=== PATIENT | female | born 1930 | race Caucasian/White ===

== ENCOUNTER 2016-04-09 14:20 | Observation (INO) | payer OTHER ==
[2016-04-09 14:39] VITALS: BMI 31.9
--- NOTE | 2016-04-09 14:50 | PDOC ---
History of Present Illness - General History Source: Patient Exam Limitations: No Limitations <Reeves,Elham Gaurang - Last Filed: 04/09/16 15:58> - General History Source: Patient Exam Limitations: No Limitations <Cyndy Nixon - Last Filed: 04/11/16 10:00> - General Chief Complaint: Chest Pain Stated Complaint: CHEST PAIN Time Seen by Provider: 04/09/16 14:23 - History of Present Illness Initial Comments: 04/09/16 15:23 The patient is an 86 year old female with a significant past medical history of AFIB, HTN, hypercholesterolemia, emphysema who presents to the Emergency Department sent by PCP with intermittent chest pain for 5 days and EKG changes. She describes the pain as a tightening feeling. She states that the pain occurs at rest, and mainly in the morning every day for the past 5 days. She rates the pain a 4/10. She states that the pain usually lasts for 10-30 minutes. She reports the pain radiates to her back. She also reports a tingling sensation in her face and diaphoresis for the past couple weeks that occurs at night. Her last stress test and echo was a year ago, which was normal. She denies SOB, abdominal pain, fever, chills, cough, nausea, vomiting, diarrhea, constipation, urinary complaints. (Elham Reeves) Past History <Elham Reeves - Last Filed: 04/09/16 15:58> - Past Medical History Anemia: No Asthma: No Cancer: No Cardiac Disorders: Yes (ATRIAL FIBRILLATION) CVA: No COPD: Yes CHF: No Dementia: No Diabetes: No GI Disorders: Yes (GERD COLONIC POLYPS) Disorders: No HTN: Yes Hypercholesterolemia: Yes Liver Disease: No Seizures: No Thyroid Disease: No - Surgical History Abdominal Surgery: Yes Appendectomy: Yes (CHILDHOOD) Cardiac Surgery: No Cholecystectomy: Yes () Lung Surgery: No Neurologic Surgery: No Orthopedic Surgery: No - Psycho/Social/Smoking Cessation Hx Smoking History: Former smoker Have you smoked in the past 12 months: No Number of Cigarettes Smoked Daily: 0 If you are a former smoker, when did you quit?: 1979 Hx Alcohol Use: No Drug/Substance Use Hx: No Substance Use Type: None Hx Substance Use Treatment: No <Cyndy Nixon - Last Filed: 04/11/16 10:00> - Past Medical History Allergies/Adverse Reactions: Allergies Allergy/AdvReac Type Severity Reaction Status Date / Time No Known Allergies Allergy Verified 04/09/16 14:24 Home Medications: Ambulatory Orders Aspirin Coated [Ecotrin] 81 mg PO DAILY 03/22/11 Atorvastatin Ca [Lipitor -] 20 mg PO DAILY 08/18/14 Cholecalciferol (Vitamin D3) [Vitamin D3] 5,000 unit PO DAILY 08/18/14 Dofetilide [Tikosyn] 250 mcg PO BID 08/18/14 Fiber [Fiber Off] 6 each PO DAILY 08/18/14 Ibuprofen [Motrin -] 400 mg PO DAILY PRN 08/18/14 Isosorbide Mononitrate [Imdur] 60 mg PO DAILY 08/18/14 Losartan Potassium 50 mg PO DAILY 08/18/14 Mometasone Furoate [Asmanex] 0.135 gm IH HS 08/18/14 Montelukast Na [Singulair -] 10 mg PO DAILY 08/18/14 [place]-3 Fatty Acids [Fish Oil] 1,000 mg PO DAILY 08/18/14 Potassium Chloride [Klor-Con M15] 20 meq PO DAILY 08/18/14 Sertraline HCl [Zoloft] 200 mg PO DAILY 08/18/14 Tiotropium [place] [Spiriva -] 1 inh PO DAILY 08/18/14 Vit C/Vit E AC/Lut/Copper/Zinc [Preservision Softgel] 1 each PO BID 08/18/14 Cyanocobalamin [Vitamin B12 -] 1,000 mcg PO DAILY 04/09/16 Diltiazem HCl [Cardizem LA] 240 mg PO DAILY 04/09/16 Isosorbide Mononitrate [Isosorbide Mononitrate ER] 240 mg PO DAILY 04/09/16 Nitroglycerin [Nitromist] 1 spray TL PRN PRN 04/09/16 Pantoprazole Sodium 40 mg PO DAILY 04/09/16 Cardiac Specific PMH - Complaint Specific PMHX Pacemaker: No <Cyndy Nixon - Last Filed: 04/11/16 10:00> Review of Systems - Review of Systems Able to Perform ROS?: Yes <Elham Reeves - Last Filed: 04/09/16 15:58> <Cyndy Nixon - Last Filed: 04/11/16 10:00> - Review of Systems Comments:: 04/09/16 15:23 GENERAL/CONSTITUTIONAL: +diaphoresis No: fever, chills, weakness, loss of appetite. HEAD, EYES, EARS, NOSE AND THROAT: No: change in vision, ear pain, discharge, sore throat, throat swelling. CARDIOVASCULAR: + chest pain. No: lightheadedness, palpitations, syncope RESPIRATORY: No: cough, shortness of breath, wheezing, hemoptysis, stridor. GASTROINTESTINAL: No: nausea, vomiting, abdominal cramping, diarrhea, rectal bleeding, constipation. GENITOURINARY: No: dysuria, hematuria, frequency, urgency, flank pain. MUSCULOSKELETAL: No: back pain, neck pain, joint pain, muscle swelling or pain SKIN AND BREASTS: No: lesions, pallor, rash or easy bruising. NEUROLOGIC: + face tingling No: headache, vertigo, paresthesias, weakness ENDOCRINE: No: unexplained weight gain or loss HEMATOLOGIC/LYMPHATIC: No: anemia, easy bleeding, swelling nodes (Elham Reeves) *Physical Exam <Elham Reeves - Last Filed: 04/09/16 15:58> <Cyndy Nixon - Last Filed: 04/11/16 10:00> - Vital Signs Last Vital Signs Temp Pulse Resp BP Pulse Ox 98.4 F 69 17 164/59 94 L 04/11/16 05:55 04/11/16 08:25 04/11/16 08:25 04/11/16 08:25 04/11/16 08:25 - Physical Exam Comments: 04/09/16 15:23 GENERAL: The patient is in no acute distress. HEAD: Normal with no signs of trauma. EYES: PERRLA, EOMI, sclera anicteric, conjunctiva clear. ENT: Ears normal, nares patent, oropharynx clear without exudates. Moist mucous membranes. NECK: Normal range of motion, supple without lymphadenopathy, JVD, or masses. LUNGS: Breath sounds equal, clear to auscultation bilaterally. No wheezes, and no crackles. HEART: No chest wall tenderness. Regular rate and rhythm, normal S1 and S2 without murmur, rub or gallop. ABDOMEN: Soft, nontender, normoactive bowel sounds. No guarding, no rebound. EXTREMITIES: Normal range of motion, no edema. No clubbing or cyanosis. No erythema, or tenderness. NEUROLOGICAL: Cranial nerves II through XII grossly intact. Normal speech. No focal neurological deficits. MUSCULOSKELETAL: Back non-tender to palpation, no CVA tenderness SKIN: Warm, Dry, normal turgor, no rashes or lesions noted. (Elham Reeves) Heart Score/ECG Review - History History: Slightly suspicious - Electrocardiogram EKG: Normal - Age Age: >/= 65 - Risk Factors Risk Factors Heart Score: Yes Hx Hypercholesterolemia, Yes Hx Hypertension, Yes Hx Obesity Based on the list above the patient has:: >/=3 risk factors or Hx atherosclerotic disease - Troponin Troponin: </= normal limit - Score Heart Score - Total: 4 <Cyndy Nixon - Last Filed: 04/11/16 10:00> ED Treatment Course - LABORATORY CBC & Chemistry Diagram: 04/09/16 15:00 04/09/16 15:00 <Elham Reeves - Last Filed: 04/09/16 15:58> - LABORATORY CBC & Chemistry Diagram: 04/09/16 15:00 04/10/16 12:30 <Cyndy Nixon - Last Filed: 04/11/16 10:00> - ADDITIONAL ORDERS Additional order review: 04/09/16 15:00 RBC 4.26 MCV 95.4 MCHC 32.7 RDW 14.9 MPV 8.4 Neutrophils % 61.3 Lymphocytes % 21.3 Monocytes % 12.6 H Eosinophils % 3.8 Basophils % 1.0 - RADIOLOGY Radiology Studies Ordered: Category Date Time Status CHEST PA & LAT [RAD] Stat Radiology 04/09/16 14:50 Completed Radiograph Interpretation: 04/09/16 15:59 Chest X-Ray Reported by Dr. Ronny Haney Impression: Degenerative spine and shoulder changes. Clear lungs. Large heart. No acute pathology. (Elham Reeves) - Medications Given in the ED: ED Medications Discontinued Medications Generic Name Dose Route Start Last Admin Trade Name Freq PRN Reason Stop Dose Admin Isosorbide Mononitrate 60 mg 04/10/16 10:00 04/10/16 09:55 Imdur - PO 60 mg DAILY ELIER Administration Morphine Sulfate 2 mg 04/09/16 16:48 04/09/16 17:44 Morphine Injection - IVPUSH 04/09/16 16:49 2 mg ONCE ONE Administration Nitroglycerin 0.4 mg 04/09/16 16:48 04/09/16 16:50 Nitrostat - SL 04/09/16 16:49 0.4 mg ONCE ONE Administration Medical Decision Making <Elham Reeves - Last Filed: 04/09/16 15:58> <Cyndy Nixon - Last Filed: 04/11/16 10:00> - Medical Decision Making 04/09/16 14:58 A portion of this note was documented by scribe services under my direction. I have reviewed the details of the note, within reason, and agree with the documentation with the following case summary and management plan written by me. Nursing documentation reviewed and incorporated into medical decision making 04/09/16 14:29 This is an 86 yo F with a history of HTN, Afib (on Tikosyn) who presents to the ER today from Dr Wharton Chest pain and EKG changes occurs at rest, 4/10 Intermittent Radiates to the back No diaphoresis, no nausea Lasting 10-30 minutes This morning it was severe Does take asa Will do labs, CXR, EKG Will re assess Anticipate OBS 04/09/16 14:57 04/09/16 15:40 Laboratory Tests 04/09/16 04/09/16 15:00 15:00 WBC 4.8 Hgb 13.3 Hct 40.6 Plt Count 144 INR 1.12 04/09/16 15:45 CXR nml, degenerative changes 04/09/16 15:47 Laboratory Tests 04/09/16 15:00 Creatine Kinase 66 Troponin I < 0.03 L 04/09/16 16:22 Laboratory Tests 04/09/16 15:00 Sodium 142 Potassium 3.9 Chloride 105 Carbon Dioxide 27 Anion Gap 10 BUN 21 H Creatinine 1.0 Random Glucose 107 H Case reviewed with hospitalist 04/09/16 16:49 Pt complains of chest pain Will give Nitro and morphine Pt has taken her ASA today Pt repositioned and this actually improved her symptoms (Cyndy Nixon) *DC/Admit/Observation/Transfer <Elham Reeves - Last Filed: 04/09/16 15:58> - Discharge Dispostion Admit: Yes <Hussain,Cyndy - Last Filed: 04/11/16 10:00> Diagnosis at time of Disposition: Bradycardia Chest pain Qualifiers: Chest pain type: other chest pain Qualified Code(s): R07.89 - Other chest pain - Discharge Dispostion Condition at time of disposition: Stable - Referrals - Attestations Scribe Attestion: 04/09/16 15:24 Documentation prepared by Elham Reeves, acting as medical coding technician for Cyndy Nixon MD. (Elham Reeves)
[2016-04-09 15:34] LABS: EOSINOPHIL 3.8 % (0-4.5); MCH 31.1 pg (25.7-33.7); MCHC 32.7 g/dl (32.0-36.0); MEAN CELL VOLUME 95.4 fl (80-96); MEAN PLT VOLUME 8.4 fl (7.5-11.1); NEUTROPHILS 61.3 % (42.8-82.8); PLATELET COUNT 144 K/MM3 (134-434); RDW 14.9 % (11.6-15.6); WHITE BLOOD COUNT 4.8 K/mm3 (4.0-10.0)
[2016-04-09 15:35] LABS: INR 1.12 (0.82-1.09); PROTHROMBIN TIME (PATIENT) 12.2 SEC (10.2-13.0)
[2016-04-09 15:36] LABS: ALBUMIN 3.9 g/dl (3.5-5.0); BILIRUBIN,TOTAL 0.7 mg/dl (0.2-1.0); CALCIUM 8.7 mg/dl (8.4-10.2); CPK(DFH) 66 IU/L (26-140); MAGNESIUM 1.8 mg/dL (1.8-2.4); TOT PROT 6.5 g/dl (6.4-8.3)
[2016-04-09 15:46] LABS: TROPONIN I (DFP) < 0.03 ng/ml (0.03-0.50)
[2016-04-09] MEDS ORDERED: NITROGLYCERIN SUBLINGUAL 1/150 0.4 MG TAB SL ONE (16:48)
[2016-04-09] MEDS ORDERED: morphine CARPU-JECT 2 MG/1 ML DISP.SYRIN IVPUSH ONE (16:48)
[2016-04-09] MEDS ORDERED: NITROGLYCERIN SUBLINGUAL 1/150 0.4 MG TAB ONE (16:49)
[2016-04-09] MEDS ORDERED: ACETAMINOPHEN 325 MG TABLET (FP) PO PRN (17:33)
[2016-04-09] MEDS ORDERED: ONDANSETRON 4 MG/2 ML VIAL IVPB PRN (17:33)
[2016-04-09] MEDS ORDERED: morphine CARPU-JECT 10 MG/1 ML DISP.SYRIN ONE (17:41)
[2016-04-09 18:26] LABS: PH,URINE 5.5 (4.5-8); URINE APPEARANCE Clear; URINE BILIRUBIN Negative (NEGATIVE); URINE BLOOD Negative (NEGATIVE); URINE GLUCOSE (UA) Negative (NEGATIVE); URINE KETONE Negative (NEGATIVE); URINE NITRITE Negative (NEGATIVE); URINE PROTEIN Negative (NEGATIVE); URINE UROBILINOGEN 0.2 E.U/dl (0.2-1.0)
[2016-04-09 18:29] LABS: URINE COLOR YELLOW; URINE LEUK ESTERASE 1+ (NEGATIVE)
--- NOTE | 2016-04-09 19:46 | HP ---
CHIEF COMPLAINT: Chest Pain, EKG Changes PCP: Dr. León Cardiology: Dr. Camacho HISTORY OF PRESENT ILLNESS: This is a 86 year old woman with a past medical history of Hypertension, Hyperlipidemia, Afib (on Tikosyn), COPD. Who presents to the emergency department from her PCPs office with chest pain x 5 days and EKG changes. Patient reports the pain as pressure to her mid-sternum with intermittent radiation to L- breast, then her lower back. Patient reports periods of SOB increase on exertion, diaphoresis. Patient reports the pain increases before eating, then subsides. Patient has a familial hx- Cardiac. Patient reports heat , tingling to her neck and face. Patient denies slurred speech, focal weakness, numbness. Patient denies fever, chills, cough, dizziness, AP, vomiting, diarrhea , dysuria. ER course was notable for: (1) Cardiac Enzyme neg x1 (2) EKG- NSR with no ST or TWI (3) Chest Xray- no acute pathology Recent Travel: None PAST MEDICAL HISTORY: See HPI PAST SURGICAL HISTORY: Arthrocopy- shoulder Social History: Smoking: Former, 1PPD x 40 years Alcohol: None Drugs: None Family History: Mother: OK Brother: Cardiac Sister: Stroke Allergies No Known Allergies Allergy (Verified 04/09/16 14:24) HOME MEDICATIONS: Medication Instructions Recorded Aspirin Coated [Ecotrin] 81 mg PO DAILY 03/22/11 Atorvastatin Ca [Lipitor -] 20 mg PO DAILY 08/18/14 Cholecalciferol (Vitamin D3) 5,000 unit PO DAILY 08/18/14 [Vitamin D3] Dofetilide [Tikosyn] 250 mcg PO BID 08/18/14 Fiber [Fiber Off] 6 each PO DAILY 08/18/14 Ibuprofen [Motrin -] 400 mg PO DAILY PRN 08/18/14 Isosorbide Mononitrate [Imdur] 60 mg PO DAILY 08/18/14 Losartan Potassium 50 mg PO DAILY 08/18/14 Mometasone Furoate [Asmanex] 0.135 gm IH HS 08/18/14 Montelukast Na [Singulair -] 10 mg PO DAILY 08/18/14 [place]-3 Fatty Acids [Fish Oil] 1,000 mg PO DAILY 08/18/14 Potassium Chloride [Klor-Con M15] 20 meq PO DAILY 08/18/14 Sertraline HCl [Zoloft] 200 mg PO DAILY 08/18/14 Tiotropium [place] [Spiriva -] 1 inh PO DAILY 08/18/14 Vit C/Vit E AC/Lut/Copper/Zinc 1 each PO BID 08/18/14 [Preservision Softgel] Cyanocobalamin [Vitamin B12 -] 1,000 mcg PO DAILY 04/09/16 Diltiazem HCl [Cardizem LA] 240 mg PO DAILY 04/09/16 Isosorbide Mononitrate [Isosorbide 240 mg PO DAILY 04/09/16 Mononitrate ER] Nitroglycerin [Nitromist] 1 spray TL PRN PRN 04/09/16 Pantoprazole Sodium 40 mg PO DAILY 04/09/16 REVIEW OF SYSTEMS CONSTITUTIONAL: Absent: fever, chills, diaphoresis, generalized weakness, malaise, loss of appetite, weight change HEENT: Chronic bilateral hearing loss Absent: rhinorrhea, nasal congestion, throat pain, throat swelling, difficulty swallowing, mouth swelling, ear pain, eye pain, visual changes CARDIOVASCULAR: chest pain Absent: syncope, palpitations, irregular heart rate, lightheadedness, peripheral edema RESPIRATORY: Absent: cough, shortness of breath, dyspnea with exertion, orthopnea, wheezing, stridor, hemoptysis GASTROINTESTINAL:occasional epigastric tenderness Absent: abdominal distension, nausea, vomiting, diarrhea, constipation, melena, hematochezia GENITOURINARY: Absent: dysuria, frequency, urgency, hesitancy, hematuria, flank pain, genital pain MUSCULOSKELETAL: Absent: myalgia, arthralgia, joint swelling, back pain, neck pain SKIN: Absent: rash, itching, pallor HEMATOLOGIC/IMMUNOLOGIC: Absent: easy bleeding, easy bruising, lymphadenopathy, frequent infections ENDOCRINE: Absent: unexplained weight gain, unexplained weight loss, heat intolerance, cold intolerance NEUROLOGIC: paresthesias, dizziness Absent: headache, focal weakness, unsteady gait, seizure, mental status changes , bladder or bowel incontinence PSYCHIATRIC: Absent: anxiety, depression, suicidal or homicidal ideation, hallucinations. PHYSICAL EXAMINATION GENERAL: Awake, alert, and fully oriented, in no acute distress. HEAD: Normal with no signs of trauma. EYES: Pupils equal, round and reactive to light, extraocular movements intact, sclera anicteric, conjunctiva clear. No lid lag. EARS, NOSE, THROAT: Ears-bilateral hearing loss, nares patent, oropharynx clear without exudates. Moist mucous membranes. NECK: Normal range of motion, supple without lymphadenopathy, JVD, or masses. LUNGS: Breath sounds equal, clear to auscultation bilaterally. No wheezes, and no crackles. No accessory muscle use. HEART: Irregular rate and rhythm, normal S1 and S2 without murmur, rub or gallop. ABDOMEN: Soft, obese, nontender, not distended, normoactive bowel sounds, no guarding, no rebound, no masses. No hepatomegaly or splenomegaly. MUSCULOSKELETAL: Normal range of motion at all joints. No bony deformities or tenderness. No CVA tenderness. UPPER EXTREMITIES: 2+ pulses, warm, well-perfused. No cyanosis. No clubbing. Cap refill <2 seconds. No peripheral edema. LOWER EXTREMITIES: 2+ pulses, warm, well-perfused. No calf tenderness. No peripheral edema. NEUROLOGICAL: Cranial nerves II-XII intact. Normal speech. Gait not observed. PSYCHIATRIC: Cooperative. Good eye contact. Appropriate mood and affect. SKIN: Warm, dry, normal turgor, no rashes or lesions noted. Laboratory Results - last 24 hr 04/09/16 18:00 Urine Color Yellow Urine Appearance Clear Urine pH 5.5 Ur Specific [place] 1.010 Urine Protein Negative Urine Glucose (UA) Negative Urine Ketones Negative Urine Blood Negative Urine Nitrite Negative Urine Bilirubin Negative Urine Urobilinogen 0.2 e.u/dl Ur Leukocyte Esterase 1+ H ASSESSMENT/PLAN: This is a 86 year old woman with a PMHx of: HTN, HLD, AFIB(on Tikosyn) COPD. Presents to the ED with Chest Pain and EKG changes from her PCPs office. Placed on Tele Obs Chest Pain r/o ACS for further evaluation of their emergent condition. Plan: 1. Chest Pain r/o ACS - Tele Observation - HEART Score 4 - Appreciate Cardiology Consult - Per Ed record, patient had EKG changes from the PCP, HR currently 60, EKG- no ST or TWI - Asa, BB given in ED - Continue Asa, BB 2. Atrial Fibrillation - Controlled - EKG- NSR - Continue Tikosyn 3. COPD/Asthma - Controlled - Continue home meds - Peakflow BID 4. HTN/HLD - Monitor BP - Continue home meds - Monitor renal function 5. DVT Prophylaxis - OOB - SCDs - Heparin SQ Code Status: Full Code Problem List - Problem (1) Chest pain Code(s): R07.9 - CHEST PAIN, UNSPECIFIED Qualifiers: Chest pain type: other chest pain Qualified Code(s): R07.89 - Other chest pain; R07.8 - Other chest pain (2) Afib Code(s): I48.91 - UNSPECIFIED ATRIAL FIBRILLATION (3) HTN (hypertension) Code(s): I10 - ESSENTIAL (PRIMARY) HYPERTENSION (4) HLD (hyperlipidemia) Code(s): E78.5 - HYPERLIPIDEMIA, UNSPECIFIED (5) COPD (chronic obstructive pulmonary disease) Code(s): J44.9 - CHRONIC OBSTRUCTIVE PULMONARY DISEASE, UNSPECIFIED (6) DVT prophylaxis Code(s): UHV8909 - Visit type - Emergency Visit Emergency Visit: Yes ED Registration Date: 04/09/16 Care time: The patient presented to the Emergency Department on the above date and was hospitalized for further evaluation of their emergent condition. - New Patient This patient is new to me today: Yes Date on this admission: 04/09/16 - Critical Care Critical Care patient: No
[2016-04-09 19:59] LABS: URINE BACTERIA FEW /hpf (NEGATIVE); URINE RBC 0-2 /hpf (0-3)
[2016-04-09] MEDS ORDERED: ZINC PO SCH (22:00)
[2016-04-09] MEDS ORDERED: [UNRECOGNIZED DRUG - OTHER] PO SCH (22:00)
[2016-04-09] MEDS ORDERED: VIT C PO SCH (22:00)
[2016-04-09] MEDS ORDERED: COPPER PO SCH (22:00)
[2016-04-09] MEDS ORDERED: LUT PO SCH (22:00)
[2016-04-09] MEDS ORDERED: VIT E AC PO SCH (22:00)
[2016-04-09] MEDS: ATORVASTATIN CA 20 MG TABLET (FP) PO SCH (22:36)
[2016-04-09] MEDS: MOMETASONE FUROATE 110 MCG/IH INHALER IH SCH (22:37)
[2016-04-09] MEDS: ACLIDINIUM BROMIDE 400 MCG/INH AERO.POWD IH SCH (22:37)
[2016-04-09] MEDS: DOFETILIDE 0.25 MG CAPSULE PO SCH (23:28)
[2016-04-10] MEDS: POTASSIUM CHLORIDE TABS 20 MEQ TABLET.ER (FP) PO SCH (09:55)
[2016-04-10] MEDS: LOSARTAN POTASSIUM 50 MG TABLET (FP) PO SCH (09:55)
[2016-04-10] MEDS: ASPIRIN COATED 81 MG TABLET.EC PO SCH (09:55)
[2016-04-10] MEDS: CYANOCOBALAMIN 1,000 MCG TABLET (FP) PO SCH (09:56)
[2016-04-10] MEDS: CHOLECALCIFEROL (VITAMIN D3) 1,000 UNIT TABLET (FP) PO SCH (09:56)
[2016-04-10] MEDS ORDERED: OMEGA PO SCH (10:00)
[2016-04-10] MEDS ORDERED: DILTIAZEM HCL 240 MG PO SCH (10:00)
[2016-04-10] MEDS ORDERED: POTASSIUM CHLORIDE 20 MEQ PO SCH (10:00)
[2016-04-10] MEDS ORDERED: [UNRECOGNIZED DRUG - REMARK] PO SCH (10:00)
[2016-04-10] MEDS ORDERED: TIOTROPIUM BROMIDE 18 MCG/INH (DEVICE W/ 30 CAPSULES) IH SCH (10:00)
[2016-04-10] MEDS ORDERED: ISOSORBIDE MONONITRATE 60 MG TAB.SR.24H (FP) PO SCH (10:00)
[2016-04-10] MEDS ORDERED: PATIENT'S OWN MEDICATION (NON-FORMULARY) (Sertraline Hcl [Zoloft] 200 MG) PO SCH (10:00)
[2016-04-10] MEDS ORDERED: FATTY ACIDS PO SCH (10:00)
--- NOTE | 2016-04-10 10:17 | EKG ---
Test Reason : Blood Pressure : / mmHG Vent. Rate : 060 BPM Atrial Rate : 060 BPM P-R Int : 156 ms QRS Dur : 102 ms QT Int : 466 ms P-R-T Axes : 066 019 056 degrees QTc Int : 466 ms NORMAL SINUS RHYTHM NORMAL ECG NO PREVIOUS ECGS AVAILABLE Confirmed by EVELIN VORA MD ([id number]) on 04/10/2016 10:17:04 AM Referred By: JOSÉ MIGUEL ZAVALA Confirmed By:EVELIN VORA MD
[2016-04-10] MEDS: SERTRALINE HCL 50 MG TABLET (FP) PO SCH (10:22)
[2016-04-10] MEDS: PANTOPRAZOLE 40 MG TABLET (FP) PO SCH (10:27)
[2016-04-10] MEDS: ACLIDINIUM BROMIDE 400 MCG/INH AERO.POWD IH SCH ×2 (10:28→21:38)
[2016-04-10] MEDS: OMEGA-3 ACID ETHYL ESTERS (FATTY-ACIDS) 1 GM CAPSULE (FP) PO SCH (10:28)
[2016-04-10] MEDS: MONTELUKAST NA 10 MG TABLET PO SCH (10:28)
--- NOTE | 2016-04-10 12:03 | PN ---
[id number] OBJECTIVE: patient is a 86 year old woman with a past medical history of Hypertension, Hyperlipidemia, Afib (on Tikosyn), ablation 2003, ZAYDA (bipap at night), COPD. Patient was admitted from the emergency department to observation for r/o acs. Vital Signs Period Temp Pulse Resp BP Sys/Stewart Pulse Ox Last 24 Hr 97.9 F-98.1 F 55-63 16-20 117-134/52-71 94-98 GENERAL: The patient is awake, alert, and fully oriented, in no acute distress. HEAD: Normal with no signs of trauma. EYES: PERRL, extraocular movements intact, sclera anicteric, conjunctiva clear. No ptosis. ENT: Ears normal, nares patent, oropharynx clear without exudates, moist mucous membranes. NECK: Trachea midline, full range of motion, supple. LUNGS: Breath sounds equal, clear to auscultation bilaterally, no wheezes, no crackles, no accessory muscle use. HEART: Regular rate and rhythm, S1, S2, 2/6 systolic murmur, rub or gallop. ABDOMEN: Soft, nontender, nondistended, normoactive bowel sounds, no guarding, no rebound, no hepatosplenomegaly, no masses. EXTREMITIES: 2+ pulses, warm, well-perfused, no edema. NEUROLOGICAL: Cranial nerves II through XII grossly intact. Normal speech, gait not observed. PSYCH: Normal mood, normal affect. SKIN: Warm, dry, normal turgor, no rashes or lesions noted Laboratory Results - last 24 hr 04/09/16 04/09/16 04/10/16 18:00 20:50 03:10 Troponin I 0.00 < 0.02 Urine Color Yellow Urine Appearance Clear Urine pH 5.5 Ur Specific [place] 1.010 Urine Protein Negative Urine Glucose (UA) Negative Urine Ketones Negative Urine Blood Negative Urine Nitrite Negative Urine Bilirubin Negative Urine Urobilinogen 0.2 e.u/dl Ur Leukocyte Esterase 1+ H Urine RBC 0-2 Urine WBC 2-4 Ur Epithelial Cells Few Urine Bacteria Few Active Medications Generic Name Dose Route Start Last Admin Trade Name Freq PRN Reason Stop Dose Admin Acetaminophen 650 mg 04/09/16 17:33 Tylenol - PO Q4H PRN FEVER OR PAIN Aclidinium [place] 1 puff 04/09/16 22:00 04/10/16 10:28 Tudorza - IH 1 puff BID ELIER Administration Aspirin 81 mg 04/10/16 10:00 04/10/16 09:55 Ecotrin - PO 81 mg DAILY ELIER Administration Atorvastatin Calcium 20 mg 04/09/16 22:00 04/09/16 22:36 Lipitor - PO 20 mg HS ELIER Administration Cholecalciferol 5,000 unit 04/10/16 10:00 04/10/16 09:56 Vitamin D3 - PO 5,000 unit DAILY ELIER Administration Cyanocobalamin 1,000 mcg 04/10/16 10:00 04/10/16 09:56 Vitamin B12 - PO 1,000 mcg DAILY ELIER Administration Diltiazem HCl 240 mg 04/10/16 10:00 04/10/16 09:58 Cardizem Cd - PO 240 mg DAILY ELIER Administration Dofetilide 0.25 mg 04/09/16 22:00 04/09/16 23:28 Tikosyn (Restricted To Cardiology) - PO 0.25 mg BID ELIER Administration Isosorbide Mononitrate 60 mg 04/10/16 10:00 04/10/16 09:55 Imdur - PO 60 mg DAILY ELIER Administration Losartan Potassium 50 mg 04/10/16 10:00 04/10/16 09:55 Cozaar - PO 50 mg DAILY ELIER Administration Mometasone Furoate 110 puff 04/09/16 22:00 04/09/16 22:37 Asmanex 110mcg - IH 110 puff HS ELIER Administration Montelukast Sodium 10 mg 04/10/16 10:00 04/10/16 10:28 Singulair - PO 10 mg DAILY ELIER Administration Non-Formulary Medication 1 each 04/09/16 22:00 Vit C/Vit E Ac/Lut/Copper/Zinc [Preservision Lutein Softgel] PO BID ELIER [id number] Ethyl Esters 1 gm 04/10/16 10:00 04/10/16 10:28 Lovaza - PO 1 gm DAILY ELIER Administration Ondansetron HCl 4 mg 04/09/16 17:33 Zofran Injection IVPB Q6H PRN NAUSEA Pantoprazole Sodium 40 mg 04/10/16 10:00 04/10/16 10:27 Protonix - PO 40 mg DAILY ELIER Administration Potassium Chloride 20 meq 04/10/16 10:00 04/10/16 09:55 K-Dur - PO 20 meq DAILY ELIER Administration Sertraline HCl 200 mg 04/10/16 10:00 Zoloft - PO DAILY ELIER ASSESSMENT/PLAN: 1. 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 - case discussed with Dr Quiñonez at bedside, if no severe aortic stenosis is noted on echo, increase indur to 80mg afib - pmh of paroxysmal afib, s/p ablation, remains NSR on monitor, continous 24 hour cardiac monitoring - continue cardizem, tikosyn and ASA hypertension - continue loosartan - b/p at goal 2. pulm - pmh of copd, continue turdorza and asmanex - albuterol nebulizer prn pmh of zayda - bipap ordered for night 3) gi -pmh of gerd, continue protonix f/e/n low sodium diet ppx - OOB - SCDs - Heparin SQ Code Status: Full Code Visit type - Emergency Visit Emergency Visit: Yes ED Registration Date: 04/09/16 Care time: The patient presented to the Emergency Department on the above date and was hospitalized for further evaluation of their emergent condition. - New Patient This patient is new to me today: Yes Date on this admission: 04/10/16 - Critical Care Critical Care patient: No - Discharge Referral Referred to [facility] Med [facility] No
[2016-04-10] MEDS ORDERED: ALBUTEROL SO4 0.083% IH SOL 2.5 MG/3 ML VIAL.NEB. NEB PRN (12:41)
[2016-04-10 13:07] LABS: CREATININE 0.9 mg/dl (0.6-1.3)
[2016-04-10] MEDS: DOFETILIDE 0.25 MG CAPSULE PO SCH ×2 (13:22→21:38)
[2016-04-10] MEDS ORDERED: PT OWN MED DRAWER 7, Y5N ONE ×2 (15:17→21:12)
--- NOTE | 2016-04-10 16:35 | CONS ---
CARDIOLOGY CONSULTATION DATE OF CONSULTATION: DATE OF DICTATION: 04/10/2016 CHIEF COMPLAINT: Chest pain. HISTORY OF PRESENT ILLNESS: The patient is an 86-year-old female with a long-standing history of hypertension, coronary artery disease, hypercholesterolemia, chronic obstructive pulmonary disease, paroxysmal atrial fibrillation, obstructive sleep apnea, carotid artery disease, macular degeneration. Patient was admitted with 5 days history of recurring retrosternal pressure-like chest discomfort. Initial episode woke her up from sleep and lasted approximately 15-20 minutes and abated spontaneously. There was no history of dyspnea, diaphoresis, weakness, nausea or vomiting. She did notice that the pain radiated to the interscapular area. Patient continued to have recurrence of chest discomfort, which would usually occur on waking up in the morning, and they would last anywhere between 10 to 15 minutes. The last episode occurred at around 9:00 p.m. and was prolonged, and decided to come to the hospital. Patient denies having exertional chest, arm, back, jaw pain or discomfort. She does have dyspnea on exertion, walking approximately 1 block on a flat surface, 1/4 of a block on an incline and a flight of stairs. No history of recent palpitations. No history of cough or expectoration. She denies having diabetes mellitus. PAST MEDICAL HISTORY: 1. As mentioned in the history of present illness. 2. History of nephrolithiasis 3. History of vitamin B12 deficiency SURGICAL HISTORY: 1. Status post tonsillectomy 2. Status post appendectomy 3. Status post cholecystectomy 4. Status post bilateral cataract extraction. SOCIAL HISTORY: Patient is a . Has 2 sons and a daughter. Patient smoked since the age of 21 and smoked for 30 years, 1-1/2 packs per cigarettes per day. On a rare occasion has a drink. Has a cup of tea and coffee. FAMILY HISTORY: Cystic fibrosis genes. Father when he was 78-years of age of pancreatic cancer. Mother at the age of 90, was hypertensive. Had 1 sister who of cerebrovascular accident at the age of 75, was found to be hypertensive. ALLERGIES: None reported. CURRENT MEDICATIONS: Current medications are as follows: 1. Losartan 50 mg p.o. daily 2. Tikosyn 0.25 mg p.o. b.i.d. 3. Diltiazem 240 mg p.o. daily 4. Atorvastatin 20 mg p.o. daily 5. Isosorbide mononitrate 60 mg p.o. daily 6. Ecotrin 81 mg p.o. daily 7. Asmanex 2 inhalations h.s. 8. Zoloft 200 mg p.o. daily 9. Lovaza 1 gm p.o. daily 10. Tudorza, 1 inhalation b.i.d. 11. Singulair 10 mg p.o. daily 12. Pantoprazole 40 mg p.o. daily 13. Potassium supplement 20 mEq p.o. daily 14. Vitamin B12, 1000 mcg p.o. daily 15. Vitamin D, 5000 IU p.o. daily 16. Intraocular injections for macular degeneration REVIEW OF SYSTEMS: Constitutional: No history of chills, fever or night sweats. No history of unintentional weight loss. HEENT: No history of headaches or diplopia. History of blurred vision. No history of epistaxis, hoarseness or tinnitus. History of severe bilateral deafness requiring hearing aids. Cardiovascular system: See history of present illness. Respiratory system: Denies any cough or expectoration. No history of hemoptysis or tuberculosis. Gastrointestinal system: No history of nausea, vomiting, melena or hematemesis. History of gastroesophageal reflux. No history of abdominal pain or discomfort and no history of change in bowel habits. Neurological system: History of occasional exertional lightheadedness and unsteady gait. No history of focal weakness. No history of presyncope or syncope. No history of seizures. Musculoskeletal system: Denies having any arthralgias or myalgias. Endocrine: No history of polyuria or polydipsia. No history of intolerance to cold or warm weather. Genitourinary system: History of renal lithiasis, none in the recent past. No history of dysuria, frequency, hematuria or urgency. Hematological/lymphatic: No history of anemia. No history of lymph node enlargement. EXAMINATION: General: 86-year-old, alert female was in no acute distress. No pallor, cyanosis, clubbing or jaundice. Vital signs: Blood pressure was 134/52 mmHg. Pulse 62 and regular. Respirations were 20 per minute. Temperature was 97.9 degrees Fahrenheit. Weight was not recorded. HEENT: Neck supple. No jugular venous distention. Carotids were 2+. Upstrokes appeared normal. There were bilateral bruits versus radiation of murmur. No thyromegaly was appreciated. Heart: BMI was in the fifth intercostal space. No heaves or thrills. S1 was normal. S2, A2 were slightly reduced but appeared preserved. Ejection systolic murmur, grade 2/6 was heard at the second right intercostal space along the left sternal border, ending in mid-systole. No diastolic murmur was heard. There was a grade 2/6 apical systolic murmur that radiated toward the left axilla. Lungs: Clear on auscultation. Chest: Normal AP diameter. Expansion was symmetrical. Abdomen: Obese, soft and nontender. No hepatosplenomegaly was appreciated. No palpable masses were felt. Bowel sounds were hear. There was a midline abdominal bruit. Extremities: No calf tenderness or dependent edema. Femoral pulses were 1-2+. Dorsalis pedis pulses were weak. Posterior tibial pulses could not be palpated. LAB DATA: ECG of April 09: Sinus rhythm, slow R-wave progression V1 to V3, nonspecific ST abnormalities involving the lateral precordial leads. WBC count 4800. Hemoglobin 13.3 gm/dL. Platelet count 144,000. Slightly elevated monocytes. Sodium 142, potassium 3.9, chloride 105, CO2 27 millimoles per liter. Random glucose was 107 mg/dL. Magnesium was 1.8 mg/dL. Calcium was 8.7 mg/dL. Liver function tests were normal except alkaline phosphatase was 96 units/liter. CK was 66. Troponin was less than 0.03. RADIOGRAPHIC FINDINGS: X-ray chest was reported to have degenerative spine and shoulder changes. Clear lungs, large heart. No acute pathology. IMPRESSION: 1. Chest pain syndrome. Clinical presentation is highly suggestive of coronary artery disease, recurring angina pectoris. 2. Systolic murmur, consistent with aortic valvular disease, aortic stenosis. Severity to be determined. 3. History of paroxysmal atrial fibrillation, currently in sinus rhythm. 4. Hypercholesterolemia. 5. Macular degeneration. 6. Chronic obstructive pulmonary disease. 7. Obstructive sleep apnea syndrome. 8. Hypertension. 9. Exogenous obesity. 10. Apical systolic murmur is compatible with mitral regurgitation. RECOMMENDATIONS: 1. Echocardiogram is in progress. If aortic stenosis is [id number], would suggest titration of Imdur initially to 90 mg p.o. daily, and if hemodynamically stable increase the dose to 120 mg daily. 2. Follow-up ECG and enzymes and STAT ECG during episode of chest discomfort. 3. T3, T4, TSH. 4. Cautious increase in ambulation. 5. If patient has recurrence of chest discomfort with maximum doses of anti-anginal therapy, she will need further investigation that may include the possibility of cardiac catheterization. 6. Nitrostat 0.4 mg sublingually p.r.n. during episode of chest discomfort, and kindly notify [facility] PROGNOSIS: Guarded. Thank you for your referral. Yours sincerely, DELMAR DANG M.D. [id number]
[2016-04-10] MEDS: ATORVASTATIN CA 20 MG TABLET (FP) PO SCH (21:38)
[2016-04-10] MEDS: MOMETASONE FUROATE 110 MCG/IH INHALER IH SCH (21:38)
[2016-04-11 05:57] VITALS: BP 164/59; PULSE 69; TEMP 98.4
[2016-04-11] MEDS ORDERED: ISOSORBIDE MONONITRATE 60 MG TAB.SR.24H (FP) PO SCH (09:04)
--- NOTE | 2016-04-11 09:26 | PN ---
Progress Note, Physician History of Present Illness: No further chest pain this AM which usually happens after waking up and is relieved after eating breakfast, denies dyspnea on exertion today. - Current Medication List Current Medications: Active Medications Acetaminophen (Tylenol -) 650 mg PO Q4H PRN PRN Reason: FEVER OR PAIN Aclidinium [place] (Tudorza -) 1 puff IH BID [facility] Last Admin: 04/10/16 21:38 Dose: 1 puff Albuterol Sulfate (Ventolin 0.083% Nebulizer Soln -) 1 amp NEB Q4H PRN PRN Reason: SHORT OF BREATH/WHEEZING Aspirin (Ecotrin -) 81 mg PO DAILY [facility] Last Admin: 04/10/16 09:55 Dose: 81 mg Atorvastatin Calcium (Lipitor -) 20 mg PO HS [facility] Last Admin: 04/10/16 21:38 Dose: 20 mg Cholecalciferol (Vitamin D3 -) 5,000 unit PO DAILY [facility] Last Admin: 04/10/16 09:56 Dose: 5,000 unit Cyanocobalamin (Vitamin B12 -) 1,000 mcg PO DAILY [facility] Last Admin: 04/10/16 09:56 Dose: 1,000 mcg Diltiazem HCl (Cardizem Cd -) 240 mg PO DAILY [facility] Last Admin: 04/10/16 09:58 Dose: 240 mg Dofetilide (Tikosyn (Restricted To Cardiology) -) 0.25 mg PO BID [facility] Last Admin: 04/10/16 21:38 Dose: 0.25 mg Isosorbide Mononitrate 30 mg/ (Isosorbide Mononitrate 60 mg) 90 mg PO DAILY [facility] Losartan Potassium (Cozaar -) 50 mg PO DAILY [facility] Last Admin: 04/10/16 09:55 Dose: 50 mg Mometasone Furoate (Asmanex 110mcg -) 110 puff IH HS [facility] Last Admin: 04/10/16 21:38 Dose: 110 puff Montelukast Sodium (Singulair -) 10 mg PO DAILY [facility] Last Admin: 04/10/16 10:28 Dose: 10 mg [id number] Ethyl Esters (Lovaza -) 1 gm PO DAILY [facility] Last Admin: 04/10/16 10:28 Dose: 1 gm Ondansetron HCl (Zofran Injection) 4 mg IVPB Q6H PRN PRN Reason: NAUSEA Pantoprazole Sodium (Protonix -) 40 mg PO DAILY [facility] Last Admin: 04/10/16 10:27 Dose: 40 mg Potassium Chloride (K-Dur -) 20 meq PO DAILY [facility] Last Admin: 04/10/16 09:55 Dose: 20 meq Sertraline HCl (Zoloft -) 200 mg PO DAILY [facility] Last Admin: 04/10/16 10:22 Dose: 200 mg - Objective Vital Signs: Vital Signs Temperature 98.4 F 04/11/16 05:55 Pulse Rate 69 04/11/16 08:25 Respiratory Rate 17 04/11/16 08:25 Blood Pressure 164/59 04/11/16 08:25 O2 Sat by Pulse Oximetry (%) 94 L 04/11/16 08:25 Constitutional: Yes: No Distress, Calm Neck: Yes: Supple Cardiovascular: Yes: Regular Rate and Rhythm, Murmur (3/6 SM) Respiratory: Yes: Regular, CTA Bilaterally Gastrointestinal: Yes: Normal Bowel Sounds, Soft, Abdomen, Obese Edema: No Labs: CBC, BMP 04/10/16 12:30 INR, PTT INR 1.12 (0.82-1.09) 04/09/16 15:00 - ....Imaging EKG: Report Reviewed (EKG: SR @ [address]-T changes QTc 466 msec) Problem List - Problems (1) COPD (chronic obstructive pulmonary disease) Code(s): J44.9 - CHRONIC OBSTRUCTIVE PULMONARY DISEASE, UNSPECIFIED Qualifiers : COPD type: chronic bronchitis (2) Chest pain Code(s): R07.9 - CHEST PAIN, UNSPECIFIED Qualifiers: Chest pain type: other chest pain Qualified Code(s): R07.89 - Other chest pain; R07.8 - Other chest pain (3) HLD (hyperlipidemia) Code(s): E78.5 - HYPERLIPIDEMIA, UNSPECIFIED Qualifiers: Hyperlipidemia type: pure hypercholesterolemia Qualified Code(s): E78.0 - Pure hypercholesterolemia (4) HTN (hypertension) Code(s): I10 - ESSENTIAL (PRIMARY) HYPERTENSION Qualifiers: Hypertension type: essential hypertension Qualified Code(s): I10 - Essential (primary) hypertension (5) Paroxysmal atrial fibrillation Code(s): I48.0 - PAROXYSMAL ATRIAL FIBRILLATION (6) Coronary artery disease Code(s): I25.10 - ATHSCL HEART DISEASE OF [place] CORONARY ARTERY W/O ANG PCTRS Qualifiers: Coronary Disease-Associated Artery/Lesion type: [place] artery [place] vs. transplanted heart: [place] heart Associated angina: with stable angina Qualified Code(s): I25.119 - Atherosclerotic heart disease of [place] coronary artery with unspecified angina pectoris (7) Mild aortic valve stenosis Code(s): I35.0 - NONRHEUMATIC AORTIC (VALVE) STENOSIS (8) Diastolic dysfunction Code(s): I51.9 - HEART DISEASE, UNSPECIFIED (9) Hypertensive cardiomyopathy Code(s): I11.9 - HYPERTENSIVE HEART DISEASE WITHOUT HEART FAILURE I42.9 - CARDIOMYOPATHY, UNSPECIFIED Qualifiers: Heart failure presence: without heart failure Qualified Code(s): I11.9 - Hypertensive heart disease without heart failure Assessment/Plan 04/10/2016 Echo: Normal LV size and fxn, mild cLVH, diastolic dysfunction, mild DREW 1.5 cm^2, MG 15 mmHg, mild AR, MR, TR 01/10/2015 Stress echo: No exercise-induced ischemia, normal LV size and fxn at rest and post-exercise 1. CAD, angina pectoris 2. 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 Hyperlipidemia 4. Diastolic dysfunction with mild 5. COPD 6. OSAS 7. HTN/HCVD, BP not at goal 8. Obesity P:1. Ruled out for ND, f/u TSH 2. Agree with uptitration Imdur 90 qd, continue ASA 81 qd, Lipitor 20 qhs, Cardizem CD 240 qd, losartan 50 qd, Lovaza 1 qd, Tikosyn 0.25 bid with monitor QT intervals, 3. BD, Singulair, O2 as needed, cpap nightly 4. Ambulate, d/c planning, stress testing may be performed as outpatient
[2016-04-11] MEDS ORDERED: ISOSORBIDE MONONITRATE 30 MG, ISOSORBIDE MONONITRATE 60 MG PO SCH (10:00)
[2016-04-11] MEDS ORDERED: ISOSORBIDE MONONITRATE 60 MG TAB.SR.24H (FP) PO ONE (10:10)
[2016-04-11] MEDS ORDERED: ISOSORBIDE MONONITRATE 30 MG TAB.SR.24H (FP) PO ONE (10:10)
[2016-04-11] MEDS ORDERED: PT OWN MED DRAWER 7, Y5N ONE (10:11)
[2016-04-11] MEDS: CHOLECALCIFEROL (VITAMIN D3) 1,000 UNIT TABLET (FP) PO SCH (10:27)
[2016-04-11] MEDS: PANTOPRAZOLE 40 MG TABLET (FP) PO SCH (10:27)
[2016-04-11] MEDS: ASPIRIN COATED 81 MG TABLET.EC PO SCH (10:28)
[2016-04-11] MEDS: LOSARTAN POTASSIUM 50 MG TABLET (FP) PO SCH (10:28)
[2016-04-11] MEDS: MONTELUKAST NA 10 MG TABLET PO SCH (10:29)
[2016-04-11] MEDS: CYANOCOBALAMIN 1,000 MCG TABLET (FP) PO SCH (10:29)
[2016-04-11] MEDS: SERTRALINE HCL 50 MG TABLET (FP) PO SCH (10:29)
[2016-04-11] MEDS: POTASSIUM CHLORIDE TABS 20 MEQ TABLET.ER (FP) PO SCH (10:31)
[2016-04-11] MEDS: OMEGA-3 ACID ETHYL ESTERS (FATTY-ACIDS) 1 GM CAPSULE (FP) PO SCH (10:31)
[2016-04-11] MEDS: ACLIDINIUM BROMIDE 400 MCG/INH AERO.POWD IH SCH (10:32)
--- NOTE | 2016-04-11 13:47 | DS ---
Physical Exam: SUBJECTIVE: Patient seen and examined, she reports feeling well, denies any chest pain or chest pain or shortness of breath. OBJECTIVE: patient is a 86 year old woman with a past medical history of Hypertension, Hyperlipidemia, Afib (on Tikosyn), COPD. Who presents to the emergency department from her PCPs office with chest pain x 5 days and EKG changes. Patient reports the pain as pressure to her mid-sternum with intermittent radiation to L- breast, then her lower back. Patient reports periods of SOB increase on exertion, diaphoresis. Patient reports the pain increases before eating, then subsides. Patient has a familial hx- Cardiac. Patient reports heat, tingling to her neck and face. Patient denies slurred speech, focal weakness, numbness. Patient denies fever, chills, cough, dizziness , AP, vomiting, diarrhea, dysuria. ER course was notable for: (1) Cardiac Enzyme neg x1 (2) EKG- NSR with no ST or TWI (3) Chest Xray- no acute pathology Vital Signs Period Temp Pulse Resp BP Sys/Stewart Pulse Ox Last 24 Hr 98.3 F-98.6 F 51-69 17-19 141-164/50-65 94-100 PHYSICAL EXAM GENERAL: The patient is awake, alert, and fully oriented, in no acute distress. HEAD: Normal with no signs of trauma. EYES: PERRL, extraocular movements intact, sclera anicteric, conjunctiva clear. ENT: Ears normal, nares patent, oropharynx clear without exudates, moist mucous membranes. NECK: Trachea midline, full range of motion, supple. LUNGS: Breath sounds equal, clear to auscultation bilaterally, no wheezes, no crackles, no accessory muscle use. HEART: Regular rate and rhythm, S1, S2 without murmur, rub or gallop. ABDOMEN: Soft, nontender, nondistended, normoactive bowel sounds, no guarding, no rebound, no hepatosplenomegaly, no masses. EXTREMITIES: 2+ pulses, warm, well-perfused, no edema. NEUROLOGICAL: Cranial nerves II through XII grossly intact. Normal speech, gait not observed. PSYCH: Normal mood, normal affect. SKIN: Warm, dry, normal turgor, no rashes or lesions noted. LABS CBC WBC 4.8 K/mm3 (4.0-10.0) 04/09/16 15:00 RBC 4.26 M/mm3 (3.60-5.2) 04/09/16 15:00 Hgb 13.3 GM/dl (10.7-15.3) 04/09/16 15:00 Hct 40.6 % (32.4-45.2) 04/09/16 15:00 MCV 95.4 fl (80-96) 04/09/16 15:00 MCHC 32.7 g/dl (32.0-36.0) 04/09/16 15:00 RDW 14.9 % (11.6-15.6) 04/09/16 15:00 Plt Count 144 K/MM3 (134-434) 04/09/16 15:00 MPV 8.4 fl (7.5-11.1) 04/09/16 15:00 Neutrophils % 61.3 % (42.8-82.8) 04/09/16 15:00 Lymphocytes % 21.3 % (8-40) 04/09/16 15:00 Monocytes % 12.6 % (3.8-10.2) H 04/09/16 15:00 Eosinophils % 3.8 % (0-4.5) 04/09/16 15:00 Basophils % 1.0 % (0-2.0) 04/09/16 15:00 CMP Sodium 138 mmol/L (136-145) 04/10/16 12:30 Potassium 4.2 mmol/L (3.5-5.1) 04/10/16 12:30 Chloride 104 mmol/L (98-107) 04/10/16 12:30 Carbon Dioxide 31 mmol/L (22-28) H 04/10/16 12:30 Anion Gap 3 (8-16) L 04/10/16 12:30 BUN 18 mg/dl (7-18) 04/10/16 12:30 Creatinine 0.9 mg/dl (0.6-1.3) 04/10/16 12:30 Creat Clearance w eGFR 52.69 (>60) 04/09/16 15:00 Random Glucose 96 mg/dl (74-106) 04/10/16 12:30 Calcium 9.0 mg/dl (8.4-10.2) 04/10/16 12:30 Magnesium 1.8 mg/dL (1.8-2.4) 04/09/16 15:00 Total Bilirubin 0.7 mg/dl (0.2-1.0) 04/09/16 15:00 AST 25 U/L (10-42) 04/09/16 15:00 ALT 13 U/L (10-40) 04/09/16 15:00 Alkaline Phosphatase 96 U/L (32-92) H 04/09/16 15:00 Creatine Kinase 66 IU/L (26-140) 04/09/16 15:00 Troponin I < 0.02 ng/ml (0.00-0.05) 04/10/16 03:10 Total Protein 6.5 g/dl (6.4-8.3) 04/09/16 15:00 Albumin 3.9 g/dl (3.5-5.0) 04/09/16 15:00 Laboratory Tests 04/09/16 04/09/16 04/10/16 15:00 20:50 03:10 Troponin I < 0.03 L 0.00 < 0.02 HOSPITAL COURSE: patient was admitted to observation for chest Pain r/o ACS. troponin x 3 wnl , patient reported CERRATO. ECHO resulted as LVEF 70-75%, grade II diastolic dysfunction, mild aortic stenosis, carotid doppler no evidence of hemodynamic stenosis. Indur was increased to 80mg. [employer] items, Dr Quiñonez was consulted. pt has a pmh of paroxysmal afib, s/p ablation. She remained in NSR on 48 hour cardiac monitoring. cardizem, tikosyn and ASA was continued throughout hospitalization. loosartan was continue, b/p at goal. patient has a pmh of copd. turdorza and asmanex was continued throughout hospitalization with albuterol nebulizer prn. pt has a pmh of zayda. bipap ordered for night. Date of Admission:04/09/16 Date of Discharge: 04/11/16 Minutes to complete discharge: 35 Discharge Summary Reason For Visit: CHEST PAIN Current Active Problems Afib (Acute) Bradycardia (Acute) COPD (chronic obstructive pulmonary disease) (Acute) Chest pain (Acute) Coronary artery disease (Acute) DVT prophylaxis (Acute) Diastolic dysfunction (Acute) HLD (hyperlipidemia) (Acute) HTN (hypertension) (Acute) Hypertensive cardiomyopathy (Acute) Mild aortic valve stenosis (Acute) Paroxysmal atrial fibrillation (Acute) Condition: Improved - Instructions Diet, Activity, Other Instructions: your indur was increased to 90mg daily continue cardizem as prescribed 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 Referrals: Nora León MD [Primary Care Provider] - Mauricio Camacho [Non Staff, Medical] - Disposition: HOME - Home Medications Comprehensive Discharge Medication List: Ambulatory Orders Aspirin Coated [Ecotrin -] 81 mg PO DAILY 03/22/11 Atorvastatin Ca [Lipitor] 20 mg PO DAILY 08/18/14 Cholecalciferol (Vitamin D3) [Vitamin D3] 5,000 unit PO DAILY 08/18/14 Dofetilide [Tikosyn] 250 mcg PO BID 08/18/14 Fiber [Fiber Off] 6 each PO DAILY 08/18/14 Ibuprofen [Motrin -] 400 mg PO DAILY PRN 08/18/14 Losartan Potassium 50 mg PO DAILY 08/18/14 Mometasone Furoate [Asmanex] 0.135 gm IH HS 08/18/14 Montelukast Na [Singulair -] 10 mg PO DAILY 08/18/14 [place]-3 Fatty Acids [Fish Oil] 1,000 mg PO DAILY 08/18/14 Potassium Chloride [Klor-Con M15] 20 meq PO DAILY 08/18/14 Sertraline HCl [Zoloft] 200 mg PO DAILY 08/18/14 Tiotropium Stella [Spiriva] 1 inh PO DAILY 08/18/14 Vit C/Vit E AC/Lut/Copper/Zinc [Preservision Lutein Softgel] 1 each PO BID 08/18 Cyanocobalamin [Vitamin B12 -] 1,000 mcg PO DAILY 04/09/16 Diltiazem HCl [Cardizem LA] 240 mg PO DAILY 04/09/16 Acetaminophen [Tylenol .Regular Strength -] 650 mg PO Q4H PRN #0 tablet Isosorbide Mononitrate [Imdur -] 90 mg PO DAILY #30 tab.sr.24h 04/11/16 Isosorbide Mononitrate [Imdur -] 90 mg PO DAILY #30 tab.sr.24h 04/11/16 Nitroglycerin [Nitromist] 1 spray TL PRN PRN #1 spray 04/11/16 Pantoprazole Sodium 40 mg PO DAILY #30 tablet. 04/11/16 This patient is new to me today: No Emergency Visit: Yes ED Registration Date: 04/09/16 Care time: The patient presented to the Emergency Department on the above date and was hospitalized for further evaluation of their emergent condition. Critical Care patient: No - Discharge Referral Referred to [facility] No
== END 2016-04-11 13:20 | disposition home or self-care (01) ==
LOC: FER 14:20 → FM/S 17:51
PROVIDERS: ADMIT Internal Medicine; ATTEND Nurse Practitioner Family
DX: R07.89 Other chest pain (principal); J44.9 Chronic obstructive pulmonary disease, unspecified; E78.5 Hyperlipidemia, unspecified; I11.9 Hypertensive heart disease without heart failure; I48.0 Paroxysmal atrial fibrillation; I25.119 Atherosclerotic heart disease of native coronary artery with unspecified angina pectoris; I35.0 Nonrheumatic aortic (valve) stenosis; I42.9 Cardiomyopathy, unspecified; G47.33 Obstructive sleep apnea (adult) (pediatric); Z68.31 Body mass index [BMI] 31.0-31.9, adult; R00.1 Bradycardia, unspecified; H35.30 Unspecified macular degeneration; E66.09 Other obesity due to excess calories
CPT/HCPCS: 36415; 71020-TC; 80048; 80053; 81003; 81015; 82550; 83735; 84484; 85025; 85610; 87086; 93005; 93306-TC; 93880-TC; 94761; 99285-25; G0378